=== PATIENT | male | born 1985 | race Caucasian/White ===

== ENCOUNTER 2018-05-23 18:49 | Emergency (ER) | payer OTHER ==
[~2018-05-23] VITALS: Ht 180.3 cm; Wt 121.0 kg
[2018-05-23] MEDS ORDERED: KETOROLAC 60MG/2ML VIAL IM ONE (20:45)
[2018-05-23 20:57] VITALS: BP 144/96
== END 2018-05-23 23:50 | disposition home or self-care (01) ==
LOC: ER 23:40
DX: M54.12 Radiculopathy, cervical region (principal); K50.90 Crohn's disease, unspecified, without complications
CPT/HCPCS: 96372; 99283; J1885